=== PATIENT | female | born 1965 | race Asian ===

== ENCOUNTER 2016-09-16 14:34 | Emergency (ER) | payer SELFPAY ==
--- NOTE | 2016-09-16 14:44 | EDPHY ---
H & P Source: Patient Exam Limitations: No limitations - Medical/Surgical History Hx Asthma: No Hx Chronic Respiratory Disease: No Hx Diabetes: No Hx Cardiac Disease: No Hx Renal Disease: No Hx Cirrhosis: No Hx Alcoholism: No Hx HIV/AIDS: No - Family History Significant Family History: No pertinent family hx - Social History Alcohol Use: Sober Drug Use: None Time Seen by Provider: 09/16/16 14:35 HPI/ROS: CHIEF COMPLAINT: Laceration HISTORY OF PRESENT ILLNESS: The patient is a 51-year-old female visiting from [place] who comes to the emergency department after a trip and fall over the sidewalk. She has 3 large lacerations to her forehead. Partially involving her upper eyelid. Is she denies loss of consciousness. She denies other injuries. Her vision is intact. No facial tenderness. REVIEW OF SYSTEMS: Constitutional: denies: chills, fever, recent illness, recent injury EENTM: See HPI Respiratory: denies: cough, shortness of breath Cardiac: denies: chest pain, irregular heart rate, lightheadedness, palpitations Gastrointestinal/Abdominal: denies: abdominal pain, diarrhea, nausea, vomiting, blood streaked stools Genitourinary: denies: dysuria, frequency, hematuria, pain Musculoskeletal: denies: joint pain, muscle pain Skin: See HPI Neurological: denies: headache, numbness, paresthesia, tingling, dizziness, weakness Hematologic/Lymphatic: denies: blood clots, easy bleeding, easy bruising Immunologic/allergic: denies: HIV/AIDS, transplant EXAM: GENERAL: Well-appearing, well-nourished and in no acute distress. HEAD: Atraumatic, normocephalic. EYES: Pupils equal round and reactive to light, extraocular movements intact, sclera anicteric, conjunctiva are normal. ENT: TMs normal, nares patent, oropharynx clear without exudates. Moist mucous membranes. NECK: Normal range of motion, supple without lymphadenopathy or JVD. LUNGS: Breath sounds clear to auscultation bilaterally and equal. No wheezes rales or rhonchi. HEART: Regular rate and rhythm without murmurs, rubs or gallops. ABDOMEN: Soft, nontender, normoactive bowel sounds. No guarding, no rebound. No masses appreciated. BACK: No CVA tenderness, no spinal tenderness, step-offs or deformities EXTREMITIES: Normal range of motion, no pitting or edema. No clubbing or cyanosis. NEUROLOGICAL: Cranial nerves II through XII grossly intact. Normal speech, normal gait. 5/5 strength, normal movement in all extremities, normal sensation PSYCH: Normal mood, normal affect. SKIN: 3 lacerations to face resulting in a bucket handle type skin injury. See diagram (Rashawn Leal) Constitutional: Initial Vital Signs Temperature (C) 37 C 09/16/16 14:34 Heart Rate 99 09/16/16 14:34 Respiratory Rate 20 09/16/16 14:34 Blood Pressure 174/94 H 09/16/16 14:34 O2 Sat (%) 94 09/16/16 14:34 O2 Delivery Mode Room Air Allergies/Adverse Reactions: No Known Allergies Allergy (Unverified 09/16/16 14:46) Home Medications: Medication Instructions Recorded NK [No Known Home Meds] 09/16/16 ED Images - Head Head Front/Back: 1 - 4 cm gaping laceration shallow but resulting in bucket-handle of the skin with laceration 2. Extraocular muscles intact. Vision intact 2 - Laceration in the corner of her eye. No visible tear duct injury. Extraocular muscles intact. Through and through with laceration 1. 3 - 2 cm laceration, 1 cm deep. Medical Decision Making ED Course/Re-evaluation: 2:45 p.m. I discussed the case with Dr. Stevie Dowd who is on-call for plastics. He is currently in a breast reduction surgery and will be here 3 hours for repair. Care transferred to Dr. Imer Schwarz at shift change. (Rashawn Leal) Differential Diagnosis: Partial list of the Differential diagnosis considered include but were not limited to; laceration, facial fracture, head injury and although unlikely based on the history and physical exam, I also considered neck injury, foreign body, eye injury. I discussed these differential diagnoses and the plan with the patient as well as the usual and expected course. The patient understands that the diagnosis is provisional and that in medicine we are not always correct and that further workup is often warranted. Usual and customary warnings were given. All of the patient's questions were answered. The patient was instructed to return to the emergency department should the symptoms at all worsen or return, otherwise to followup with the physician as we discussed. (Rashawn Leal) - Data Points Medications Given: Discontinued Medications Bacitracin (Bacitracin Ophthalmic) 1 aristeo RTEYE TID ONE Stop: 09/16/16 19:06 Last Admin: 09/16/16 19:45 Dose: 1 aristeo Departure - Departure Disposition: Home, Routine, Self-Care Clinical Impression: Laceration of face Qualifiers: Encounter type: initial encounter Qualified Code(s): S01.81XA - Laceration without foreign body of other part of head, initial encounter Condition: Fair Instructions: Facial Laceration (ED) Additional Instructions: Follow-up with your plastic surgeon as scheduled. Return to the ED for fever, vomiting , redness or other other concerns. Referrals: Patient,NotPresent [Unknown] - As per Instructions Stevie Dowd MD [Medical Doctor] - As per Instructions Print Language: Qatari Mandarin
[2016-09-16 14:48] VITALS: TEMP 98.6
[2016-09-16 15:47] VITALS: RESP 16
[2016-09-16] MEDS ORDERED: BACITRACIN OPHTHALMIC OPTH OINTMENT RTEYE ONE (19:05)
--- NOTE | 2016-09-16 19:19 | PDCONSULT ---
Rv Detailer Note: PLASTIC SURGERY CONSULTATION CHIEF COMPLAINT: Laceration HISTORY OF PRESENT ILLNESS: The patient is a 51-year-old female visiting from [place] who comes to the emergency department after a trip and fall over the sidewalk. She has 3 large lacerations to her forehead. Partially involving her upper eyelid. She denies loss of consciousness. She denies other injuries. Her vision is intact. No facial tenderness. REVIEW OF SYSTEMS: Constitutional: denies: chills, fever, recent illness, recent injury EENTM: See HPI Respiratory: denies: cough, shortness of breath Cardiac: denies: chest pain, irregular heart rate, lightheadedness, palpitations Gastrointestinal/Abdominal: denies: abdominal pain, diarrhea, nausea, vomiting, blood streaked stools Genitourinary: denies: dysuria, frequency, hematuria, pain Musculoskeletal: denies: joint pain, muscle pain Skin: See HPI Neurological: denies: headache, numbness, paresthesia, tingling, dizziness, weakness Hematologic/Lymphatic: denies: blood clots, easy bleeding, easy bruising Immunologic/allergic: denies: HIV/AIDS, transplant EXAM: GENERAL: Well-appearing, well-nourished and in no acute distress. HEAD: Atraumatic, normocephalic. EYES: Pupils equal round and reactive to light, extraocular movements intact, sclera anicteric, conjunctiva are normal. No Telecanthus, no enophathalmus ENT: TMs normal, nares patent, oropharynx clear without exudates. Moist mucous membranes. NECK: Normal range of motion, supple without lymphadenopathy or JVD. LUNGS: Breath sounds clear to auscultation bilaterally and equal. No wheezes rales or rhonchi. HEART: Regular rate and rhythm without murmurs, rubs or gallops. ABDOMEN: Soft, nontender, normoactive bowel sounds. No guarding, no rebound. No masses appreciated. BACK: No CVA tenderness, no spinal tenderness, step-offs or deformities EXTREMITIES: Normal range of motion, no pitting or edema. No clubbing or cyanosis. NEUROLOGICAL: Cranial nerves II through XII grossly intact. Normal speech, normal gait. 5/5 strength, normal movement in all extremities, normal sensation PSYCH: Normal mood, normal affect. SKIN: 3 lacerations to face resulting in a bucket handle type skin injury. 1 - 4 cm gaping laceration shallow but resulting in bucket-handle of the skin with laceration 2. Extraocular muscles intact. Vision intact 2 - Laceration in the corner of her eye. No visible tear duct injury. Extraocular muscles intact. Through and through with laceration 3 - 2 cm laceration, 1 cm deep. Constitutional: Initial Vital Signs Temperature (C) 37 C 09/16/16 14:34 Heart Rate 99 09/16/16 14:34 Respiratory Rate 20 09/16/16 14:34 Blood Pressure 174/94 H 09/16/16 14:34 O2 Sat (%) 94 09/16/16 14:34 O2 Delivery Mode Room Air Allergies/Adverse Reactions: No Known Allergies Allergy (Unverified 09/16/16 14:46) Home Medications: Medication Instructions Recorded NK [No Known Home Meds] 09/16/16 Procedure: Verbal consent was obtained with the maldivian speaking family memebers The area was prepped and drapped in the usual sterile fashion and 5 cc of 1% lidocaine with epi was used as a field block around the entire area. The area was then washed out with copious amounts of sterile and then prepped again with betadine. Each wound was then closed in a complex fashion with a 4-0 vicryl deep subcutaneous sutures and then 6-0 prolene interrupted sutures. In all, the closure measured 8cm around the eye for all the closures. Bacitracin and baci opthalmic was placed around each laceration. She tolerated the procedure well AP 1. Follow up in my office for suture removal 5-7 days 2. bacitracin BID to wounds 3. Arnica Motrin PRN 4. Antibiotics per ED
[2016-09-16 19:47] VITALS: BP 159/96; PULSE 89; O2SAT 92
== END 2016-09-16 19:46 | disposition home or self-care (01) ==
LOC: EEVIPCON 14:34
DX: S01.81XA Laceration without foreign body of other part of head, initial encounter (principal); W01.0XXA Fall on same level from slipping, tripping and stumbling without subsequent striking against object, initial encounter